=== PATIENT | male | born 1965 ===

== ENCOUNTER 2018-07-27 10:30 | Outpatient (CLI) | payer OTHER | END 2018-07-27 10:53 | disposition home or self-care (01) | LOC: NUCLEAR 10:30 | DX: E11.65 Type 2 diabetes mellitus with hyperglycemia (principal); I73.9 Peripheral vascular disease, unspecified ==

== ENCOUNTER 2018-09-13 12:28 | Inpatient (IN) | payer OTHER ==
[~2018-09-13] VITALS: Ht 172.7 cm; Wt 80.7 kg
[2018-09-13] MEDS ORDERED: INVOKAMET XR 51 EAC1 (12:38)
[2018-09-13] MEDS ORDERED: COZAAR100 MG (12:38)
[2018-09-13] MEDS ORDERED: NORVASC5 MG (12:39)
[2018-09-13] MEDS ORDERED: [UNRECOGNIZED DRUG - OTHER] (12:40)
== END 2018-09-16 12:25 | disposition home or self-care (01) | DRG 812 ==
LOC: ER 12:28 → MEDI 14:24 → SEC-K 14:24 → MEDI 18:07
PROC: 30233N1 Transfusion of Nonautologous Red Blood Cells into Peripheral Vein, Percutaneous Approach (ICD-10-PCS; 2018-09-13)
PROC: BW40ZZZ Ultrasonography of Abdomen (ICD-10-PCS; 2018-09-14)
PROC: 0DB68ZX Excision of Stomach, Via Natural or Artificial Opening Endoscopic, Diagnostic (ICD-10-PCS; principal; 2018-09-15)
DX: D50.0 Iron deficiency anemia secondary to blood loss (chronic) (principal); I10 Essential (primary) hypertension; E11.9 Type 2 diabetes mellitus without complications; K06.8 Other specified disorders of gingiva and edentulous alveolar ridge; D69.59 Other secondary thrombocytopenia; K25.9 Gastric ulcer, unspecified as acute or chronic, without hemorrhage or perforation

== ENCOUNTER 2018-10-03 09:17 | Outpatient (CLI) | payer OTHER ==
[~2018-10-03 09:17] MED LIST: COZAAR100 MG; INVOKAMET XR 51 EAC1; NORVASC5 MG; [UNRECOGNIZED DRUG - OTHER]
== END 2018-10-03 09:35 | disposition home or self-care (01) ==
LOC: TOM 09:17
DX: Z01.810 Encounter for preprocedural cardiovascular examination (principal); D64.81 Anemia due to antineoplastic chemotherapy; E03.8 Other specified hypothyroidism; E11.51 Type 2 diabetes mellitus with diabetic peripheral angiopathy without gangrene; E66.8 Other obesity; I10 Essential (primary) hypertension; M54.5 Low back pain